=== PATIENT | female | born 1975 | race American Indian/Alaskan Native ===

== ENCOUNTER 2020-12-02 09:06 | Outpatient (CLI) | payer BC ==
--- NOTE | 2020-12-02 10:10 | XRay Report ---
XR spine cervical 2-3V HISTORY: NUMBNESS AND TINGLING IN LEFT HAND R20.0 COMPARISON: None. TECHNIQUE: 4 view(s) of the cervical spine obtained. FINDINGS: Vertebrae: Normal alignment. Vertebral body heights are preserved. C1 and C2 are congruent. Odontoi d process is intact. Spondylosis:No significant abnormality. Soft tissues: No prevertebral soft tissue thickening. IMPRESSION: 1. No significant abnormality of the cervical spine. Signer Name: Adis Chavez MD Signed: 12/02/2020 10:05 AM Workstation Name: [id number]
== END 2020-12-02 09:07 | disposition home or self-care (01) ==
LOC: SPVIMAG 09:06
PROVIDERS: ATTEND Internal Medicine
DX: R20.0 Anesthesia of skin (principal); R20.2 Paresthesia of skin
CPT/HCPCS: 72040